=== PATIENT | male | born 1975 | race Caucasian/White ===

== ENCOUNTER 2018-03-03 16:54 | Emergency (ER) | payer OTHER ==
--- NOTE | 2018-03-03 17:33 | ER Report ---
History and Physical Time Seen By MD: 17:10 Hx. of Stated Complaint: PT HAS LAC TO HEAD FROM HITING HEAD ON [employer]OW[employer]BILE TRAILER HPI/ROS CHIEF COMPLAINT: Scalp laceration HISTORY OF PRESENT ILLNESS: 42-year-old male patient presents to emergency room with complaint of a scalp laceration. Patient states that he was loading his stomach feels and his trailer when he hit his head on the top a trailer as he rode in. Patient states did not have any loss of consciousness. Patient states that he did have significant amounts of bleeding. They did apply some ice to his head. Patient states that he has not taken any medication for this. Patient states at this time he does have a headache. He states there is nothing that makes the headache better or worse. REVIEW OF SYSTEMS: Respiratory: No cough, no dyspnea. Cardiovascular: No chest pain, no palpitations. Gastrointestinal: No vomiting, no abdominal pain. Musculoskeletal: No back pain. Allergies: Coded Allergies: No Known Drug Allergies (Unverified , 03/03/18) Past Medical/Surgical History Patient denies any pertinent medical or surgical history. Reviewed Nurses Notes: Yes Constitutional Vital Sign - Last 24 Hours 03/03/18 03/03/18 03/03/18 17:00 18:15 19:00 Temp 98.2 Pulse 105 89 86 Resp 18 B/P (MAP) 153/97 136/72 (93) 141/67 (91) Pulse Ox 94 Physical Exam General Appearance: The patient is alert, has no immediate need for airway protection and no current signs of toxicity. Respiratory: Chest is non tender, lungs are clear to auscultation. Cardiac: regular rate and rhythm Gastrointestinal: Abdomen is soft and non tender, no masses, bowel sounds normal. Musculoskeletal: Neck: Neck is supple and non tender. Extremities have full range of motion and are non tender. Skin: No rashes or lesions. Patient has a 14 cm laceration to the scalp. There is bleeding noted. It does go into the subcutaneous tissue. I do not see all the way down to the skull. DIFFERENTIAL DIAGNOSIS: After history and physical exam differential diagnosis was considered for laceration Medical Decision Making ED Course/Re-evaluation ED Course Patient was admitted to and examined, history and physical were obtained. Differential diagnoses were considered. On examination lungs are clear, heart regular, abdomen soft nontender. Patient is alert and oriented 4, cranial nerves II 12 grossly intact. The wound was anesthetized, cleaned and repaired described below. Patient states that he had complete resolution of the pain in his head with the numbing. We discussed options of suturing or stapling. would prefer to limit scarring is much as possible and so we will go ahead and suture. I was done as described below. Patient tolerated procedure well. We did clean them up afterwards and does seem to be well approximated. We will go ahead and discharge patient home at this time. He is to follow-up with his primary care provider in 5-7 days to have sutures removed. He is to monitor for signs of infection. Patient verbalized understanding and agreement with plan. Procedure: Laceration repair. Verbal consent was obtained from the patient. The 14 cm laceration on the scalp was anesthetized in the usual fashion. The wound was scrubbed, draped and explored to its base with a gloved finger. There were no deep structures involved. No tendon injury was identified. The wound was repaired with 2 subcuticular sutures using 4-0 Vicryl material, 14 simple interrupted sutures u sing 6-0 Prolene material. The wound repair was intermediate. The procedure was performed by myself. Decision to Disposition Date: Mar 03, 2018 Decision to Disposition Time: 19:24 Depart Departure Latest Vital Signs Vital Signs Date Time Temp Pulse Resp B/P (MAP) Pulse Ox O2 Delivery O2 Flow Rate FiO2 03/03/18 19:00 86 141/67 (91) 03/03/18 17:00 98.2 18 94 Impression: Primary Impression: Scalp laceration Condition: Improved Disposition: HOME OR SELF-CARE Patient Instructions: Laceration (ED) Additional Instructions: Keep wound dry for 48 hours. Follow up with your primary care provider in the next 5-7 days to have sutures removed. Monitor for signs of infection; redness, swelling, heat, discharge, increasing pain or red streaking. Take Tylenol or Ibuprofen as needed for pain. Return to the ER with any concerns. You may change dressing as needed. Problem Qualifiers Primary Impression: Scalp laceration Encounter type: initial encounter Qualified Codes: S01.01XA - Laceration without foreign body of scalp, initial encounter LAITH ALEJANDRE Mar 03, 2018 17:33
[2018-03-03] MEDS ORDERED: DIPHTH/TETANUS/ACEL. PERTUSSIS IM ONLY ONE (17:35)
[2018-03-03 19:00] VITALS: BP 141/67
== END 2018-03-03 19:27 | disposition home or self-care (01) ==
LOC: ER 16:54
DX: S01.01XA Laceration without foreign body of scalp, initial encounter (principal); W22.8XXA Striking against or struck by other objects, initial encounter
CPT/HCPCS: 90471; 90715; 99283